=== PATIENT | female | born 1960 | race Caucasian/White ===

== ENCOUNTER 2019-04-21 18:29 | Observation (INO) | payer BC ==
--- OUTSIDE RECORDS SUMMARY | 2019-04-21 18:42 | XMS REPORT | Continuity of Care Document ---
:1960 External Reference #:[id number] Author Name Jodie Doshi M.D. 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 Onset: 07/31/2007 Pelvic congestion syndrome Felipe Rojas M.D. Onset: 04/06/2010 Benign essential hypertension Felipe Rojas M.D. Onset: 05/27/2012 Hyperlipidemia Felipe Rojas M.D. Onset: 11/20/2013 Aneurysm of thoracic aorta Felipe Rojas M.D. Onset: 06/27/2018 Essential hypertension Felipe Rojas M.D. Onset: 07/17/2016 Family History Date Family Member(s) Observation Comments Father Atrial Fibrillation Father Prostate Cancer Onset: (age 80 Years) Father Coronary Artery Disease (CAD) Mother Osteoporosis Onset: (age 80 Years) Mother Cerebrovascular Accident (CVA) Onset: (age 50 Years) First Brother Cardiomyopathy Social History Type Date Description Comments Sex Unknown Tobacco Use Start: Unknown Nonsmoker ETOH Use Some Tobacco Use Start: Unknown Patient has never smoked Exercise Type/Frequency Exercises sporadically Current Seat Belt/Car Seat Always uses a seat belt Smoke Alarms There are smoke alarms in the house Allergies, Adverse Reactions, Alerts Active Allergies Reaction Severity Comments Date Penicillin 07/31/2007 Medications Active Medications SIG Qnty Indications Ordering Provider Date Metoprolol Succinate 1/2 by mouth 45tabs I10 Felipe Rojas, 09/21/2016 ER every day in the M.D. 25mg Tablets ER 24HR evening Rosuvastatin Calcium take 1 tablet by 90tabs E78.5 Patito Stephen 07/17/2016 10mg mouth at bedtime ANGY Larkin Tablets Vitamin D 2 by mouth every Unknown (Cholecalciferol) day-chewtabs 1000Unit Tablets Multi Vitamin Daily Unknown Tablets Oxycontin 1 po bid Unknown 10mg Tab ER 12H Abuse-Det Fiber Adult Gummies 2 qd Unknown 2gm Chewtabs Vitamin B12 1 by mouth every Unknown 1000mcg day Tablets ER Myrbetriq 1 by mouth every Unknown 50mg Tablets ER in the evening 24HR Tizanidine HCL take one by Unknown 4mg mouth up to 3 Capsules times per day as needed for pain History Medications Ciprofloxacin HCL 1 tab by mouth 6tabs Trinidad Rodriguez, 12/14/2015 - 250mg Tablets twice a day x 3 Afnp-C 12/17/2015 days Vesicare 1 by mouth every 30tabs Trinidad Rodriguez, 12/14/2015 - 5mg Tablets day Afnp-C 06/18/2017 Physical Therapy treatment and 719.4 Trinidad Rodriguez, 12/02/2013 - evaluation of 1 Afnp-C 05/11/2015 left shoulder pain Zolpidem Tartrate 1 by mouth every 30tabs Felipe Newby 11/20/2013 - 10mg Tablets night at bedtime Lulu Rojas 06/27/2018 Blood Pressure Cuff monitor blood 1units 401.9 Erin Yu, 04/02/2013 - Size pressure daily PROJ MGR 05/11/2015 Medium and report results weekly Zolpidem Tartrate 1-2 po qhs prn 45tabs 780.5 Jacinto Newby 01/17/2013 - 5mg Tablets sleep 9 Lulu Fisher 11/20/2013 Amlodipine Besylate 1 by mouth every 90tabs I10 Felipe Newby 12/25/2012 - 5mg Tablets day Lulu Rojas 09/21/2016 Amlodipine Besylate 1 po qd 30tabs Felipe Newby 08/12/2012 - 2.5mg Lulu Rojas 12/25/2012 Tablets Simvastatin take 1 tablet by 90tabs E78.4 Felipe Newby 06/27/2012 - 40mg Tablets mouth once daily Lulu Rojas 07/17/2016 Lisinopril take one tablet 30tabs Felipe Newby 06/26/2012 - 2.5mg Tablets by mouth every Lulu Rojas 08/12/2012 evening Pyridium 1 po bid x 3 days 6tabs 595.1 Jacinto Newby 12/23/2011 - 200mg Tablets Lulu Fisher 05/27/2012 Oxycodone HCL 1 po q6 hrs prn [facility] 12/19/2011 - 5mg Tablets [facility] 06/19/2017 [facility] Tizanidine HCL take one by mouth [facility] 12/19/2011 - 2mg Tablets at bedtime [facility] 06/19/2017 [facility] Cipro 1 po bid x 5 d 10tabs 599.0 Jodie Pryor 12/19/2011 - 250mg Tablets Lulu Doshi 05/27/2012 Physical Therapy Interstitial 595.1 Jodie Pryor 12/19/2011 - Evaluate And Treat: cystitis. Lulu Doshi 05/27/2012 Pelvic Floor Dysfunctn Lyrica 1 -2 up to tid as 180caps 625.5 Felipe Newby 07/22/2008 - 25mg Capsules directed Lulu Rojas 08/24/[address] Chambers 07/22/2008 - 100mg Doctor 08/24/2009 Tablets ER 12HR Pyridium as Dir prn [facility] 07/14/2008 - 100mg Tablets [facility] 04/06/2010 [facility] Hydrocodone as Dir prn/ Pain [facility] 06/30/2008 - Bitartrate/Apap [facility] 10/21/2008 5-500mg Tablets [facility] Amitriptyline HCL 1 by mouth every 90tabs Trinidad Rodriguez 06/30/2008 - 25mg Tablets day [facility] 04/17/2019 Estradiol bid [facility] 06/30/2008 - 1mg Tablets [facility] 04/06/2010 [facility] Elmiron 1 PO tid [facility] 06/30/2008 - 100mg Capsules [facility] 04/06/2010 [facility] Ambien 1 po qhs prn 90tabs 780.5 Felipe A. 02/05/2008 - 10mg Tablets sleep pu 9 Lulu Rojas 01/17/2013 nt Robitussin A-C 1-2 tsp po q4h 80ml 465.9 Casey A. 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 Clarinex 1 PO qd Samples 477.9 Erin Yu, 09/26/2007 - 5mg Tablets [facility] 12/26/2007 Ambien-CR 1 qhs prn 30units 780.5 Erin Yu, 08/20/2007 - 12.5mg 9 [facility] 02/05/2008 Lunesta 1 po qhs 30tabs 780.5 Felipe Newby 07/31/2007 - 3mg Tablets 9 Lulu Rojas 08/20/2007 Tramadol as dir prn pain 50tabs Felipe Newby 04/30/2007 - 50mg Tablets Lulu Rojas 01/20/2008 Detrol LA 1 PO qd [facility] 07/31/2001 - 4mg Capsules [facility] 04/06/2010 [facility] Fentanyl apply q3days Unknown - 25mcg/HR Patches 72HR 04/02/2013 Estradiol 1/2 po qd Unknown - 2mg Tablets 05/27/2012 Opana 1 po tid prn Unknown - 5mg Tablets 12/19/2011 Diazepam bid Unknown - Suppository 03/02/2011 Gabapentin 1 po bid Unknown - 600mg Tablets 03/02/2011 Hydrochlorothiazide 1 po qd Unknown - 12.5mg 06/26/2012 Capsules Simvastatin 1 po qd 30tabs Felipe A. - 20mg Tablets Lulu Rojas 06/27/2012 Gabapentin 2 po bid 270caps Unknown - 300mg Capsules 05/11/2015 Clonidine HCL apply 1 patch to 15units Felipe A. - 0.1mg/24HR skin weekly Lulu Rojas 11/15/2016 Patches Weekly Clonidine HCL one to skin q Unknown - 0.2mg/24HR week 09/21/2016 Patches Weekly Oxybutynin Chloride ER 1 by mouth every Unknown - 10mg day 04/17/2019 Tablets ER 24HR Magnesium 1 by mouth every Unknown - Tablets day 04/17/2019 Flax Seed Oil 1 by mouth every Unknown - 1000mg Capsules day 04/17/2019 Immunizations CPT Code Status Date Vaccine Lot # [id number] Given 06/27/2018 Influenza Virus Vaccine, Recombinant Dna, [id number] [place] [id number] Given 07/05/2017 Influenza Vac, Quadriv[place], [place] [address] Given 07/17/2016 Influenza Vac, Quadrivalent, Slit Virus, Im [id number] 44798 Given 06/29/2015 Influenza Vac, [place]riv[place], [place] [address] Given 07/23/2014 DO Not Use Split Influenza Virus Vaccine 91856 Given 08/12/2012 DO Not Use Split Influenza Virus Vaccine [id number] Given 06/19/2011 DO Not Use Split Influenza Virus Vaccine [id number] 71515 Given 08/27/2009 H1N1 Virus Vaccine [id number] 77221 Given 08/27/2009 H1N1 Immunization Intramuscular/Intranasal [facility] Counsel[facility] 86352 Given 07/22/2008 DO Not Use Split Influenza Virus Vaccine [id number] Vital Signs Date Vital Result Comment 04/17/2019 7:05pm BP Systolic 140 mmHg BP Diastolic 80 mmHg Heart Rate 72 /min Body Temperature 98.1 F Respiratory Rate 12 /min Height 65.5 inches 5'5.50" Weight 163.00 lb BMI (Body Mass Index) 26.7 kg/m2 06/27/2018 3:10pm BP Systolic 134 mmHg BP Diastolic 80 mmHg Heart Rate 70 /min Body Temperature 98.1 F Respiratory Rate 16 /min Height 66 inches from previous Weight 172.00 lb BMI (Body Mass Index) 27.8 kg/m2 Head Circumference 172 inches 06/18/2017 4:03pm BP Systolic 138 mmHg BP Diastolic 80 mmHg Heart Rate 78 /min Body Temperature 98.2 F Respiratory Rate 16 /min Weight 175.12 lb 12/06/2016 1:26pm BP Systolic 149 mmHg BP Diastolic 90 mmHg Heart Rate 60 /min 10/12/2016 1:42pm BP Systolic 120 mmHg BP Diastolic 80 mmHg Heart Rate 76 /min Body Temperature 97.7 F Respiratory Rate 16 /min Height 66 inches 5'6" Weight 180.00 lb BMI (Body Mass Index) 29.0 kg/m2 09/21/2016 6:10pm BP Systolic 136 mmHg BP Diastolic 80 mmHg Heart Rate 76 /min Body Temperature 97.7 F Respiratory Rate 16 /min Height 66 inches 5'6" Weight 180.00 lb BMI (Body Mass Index) 29.0 kg/m2 07/17/2016 1:38pm BP Systolic 136 mmHg BP Diastolic 70 mmHg Heart Rate 80 /min Body Temperature 98.8 F Respiratory Rate 16 /min Height 66 inches 5'6" Weight 185.00 lb BMI (Body Mass Index) 29.9 kg/m2 12/14/2015 7:13pm BP Systolic 126 mmHg BP Diastolic 74 mmHg Heart Rate 72 /min Body Temperature 98.1 F Respiratory Rate 16 /min Height 66 inches 5'6" Weight 193.12 lb BMI (Body Mass Index) 31.2 kg/m2 05/11/2015 1:32pm BP Systolic 142 mmHg BP Diastolic 92 mmHg Heart Rate 80 /min Body Temperature 98.9 F Height 66 inches 5'6" Weight 190.00 lb BMI (Body Mass Index) 30.7 kg/m2 08/19/2014 2:02pm BP Systolic 142 mmHg BP Diastolic 88 mmHg Heart Rate 62 /min Body Temperature 98.6 F Respiratory Rate 14 /min Height 66 inches 5'6" Weight 198.12 lb BMI (Body Mass Index) 32.0 kg/m2 12/02/2013 1:16pm BP Systolic 118 mmHg BP Diastolic 80 mmHg Heart Rate 76 /min Body Temperature 98.9 F Respiratory Rate 16 /min Height 66 inches 5'6" Weight 196.00 lb BMI (Body Mass Index) 31.6 kg/m2 11/20/2013 2:55pm BP Systolic 120 mmHg BP Diastolic 70 mmHg Heart Rate 88 /min Body Temperature 97.9 F Respiratory Rate 14 /min Height 66 inches 5'6" Weight 196.00 lb BMI (Body Mass Index) 31.6 kg/m2 04/02/2013 3:41pm BP Systolic 142 mmHg BP Diastolic 80 mmHg Heart Rate 84 /min Body Temperature 98.0 F Respiratory Rate 16 /min Height 66 inches 5'6" Weight 195.00 lb BMI (Body Mass Index) 31.5 kg/m2 08/12/2012 2:08pm BP Systolic 140 mmHg BP Diastolic 80 mmHg Heart Rate 84 /min Body Temperature 98.9 F Respiratory Rate 16 /min Height 66 inches 5'6" Weight 196.00 lb BMI (Body Mass Index) 31.6 kg/m2 07/10/2012 1:48pm BP Systolic 120 mmHg BP Diastolic 88 mmHg Heart Rate 80 /min Body Temperature 98.3 F Height 66 inches 5'6" Weight 194.00 lb BMI (Body Mass Index) 31.3 kg/m2 06/26/2012 4:35pm BP Systolic 150 mmHg BP Diastolic 90 mmHg Heart Rate 96 /min Body Temperature 98.0 F Height 66 inches 5'6" Weight 195.00 lb BMI (Body Mass Index) 31.5 kg/m2 05/27/2012 1:55pm BP Systolic 142 mmHg BP Diastolic 110 mmHg Heart Rate 96 /min Body Temperature 98.0 F O2 % BldC Oximetry 98 % Height 66 inches 5'6" Weight 195.00 lb BMI (Body Mass Index) 31.5 kg/m2 12/23/2011 12:33pm BP Systolic 124 mmHg BP Diastolic 72 mmHg Heart Rate 90 /min Body Temperature 98.7 F Height 66 inches 5'6" Weight 190.00 lb BMI (Body Mass Index) 30.7 kg/m2 12/19/2011 3:46pm BP Systolic 150 mmHg BP Diastolic 64 mmHg Heart Rate 90 /min Body Temperature 99.0 F Height 66 inches 5'6" Weight 190.00 lb BMI (Body Mass Index) 30.7 kg/m2 06/23/2011 3:58pm BP Systolic 124 mmHg BP Diastolic 86 mmHg Heart Rate 78 /min Body Temperature 98.8 F Height 66 inches 5'6" Weight 185.00 lb BMI (Body Mass Index) 29.9 kg/m2 03/02/2011 2:35pm BP Systolic 110 mmHg BP Diastolic 70 mmHg Heart Rate 84 /min Body Temperature 99.0 F Height 66 inches 5'6" Weight 183.00 lb BMI (Body Mass Index) 29.5 kg/m2 04/06/2010 2:51pm BP Systolic 122 mmHg BP Diastolic 70 mmHg Heart Rate 72 /min Body Temperature 98.3 F Respiratory Rate 16 /min Height 66 inches 5'6" Weight 170.00 lb BMI (Body Mass Index) 27.4 kg/m2 08/24/2009 4:16pm BP Systolic 110 mmHg BP Diastolic 64 mmHg Heart Rate 84 /min Body Temperature 98.1 F Height 66 inches 5'6" Weight 178.00 lb BMI (Body Mass Index) 28.7 kg/m2 10/21/2008 2:52pm BP Systolic 120 mmHg BP Diastolic 78 mmHg Heart Rate 72 /min Body Temperature 98.3 F Respiratory Rate 16 /min Height 66 inches 5'6" Weight 170.00 lb BMI (Body Mass Index) 27.4 kg/m2 08/06/2008 8:16pm BP Systolic 138 mmHg BP Diastolic 80 mmHg Heart Rate 100 /min Body Temperature 98.7 F Respiratory Rate 16 /min Height 66 inches 5'6" Weight 164.00 lb BMI (Body Mass Index) 26.5 kg/m2 07/22/2008 4:47pm BP Systolic 118 mmHg BP Diastolic 86 mmHg Heart Rate 92 /min Body Temperature 98.9 F Height 66 inches 5'6" Weight 160.00 lb BMI (Body Mass Index) 25.8 kg/m2 12/26/2007 11:30am BP Systolic 120 mmHg BP Diastolic 80 mmHg Heart Rate 68 /min Body Temperature 98.2 F Height 66 inches 5'6" 11/25/2007 10:21am BP Systolic 112 mmHg BP Diastolic 74 mmHg Heart Rate 60 /min Respiratory Rate 16 /min Height 66 inches 5'6" Weight 158.00 lb BMI (Body Mass Index) 25.5 kg/m2 10/24/2007 10:31am BP Systolic 110 mmHg BP Diastolic 58 mmHg Heart Rate 64 /min Body Temperature 98.2 F Height 66 inches 5'6" Weight 158.00 lb BMI (Body Mass Index) 25.5 kg/m2 10/17/2007 11:28am BP Systolic 118 mmHg BP Diastolic 68 mmHg Heart Rate 76 /min Body Temperature 99.3 F Height 66 inches 5'6" 10/09/2007 2:19pm BP Systolic 114 mmHg BP Diastolic 70 mmHg Heart Rate 78 /min Body Temperature 99.2 F Height 66 inches 5'6" 09/26/2007 2:06pm BP Systolic 116 mmHg BP Diastolic 62 mmHg Heart Rate 74 /min Body Temperature 98.6 F Respiratory Rate 15 /min Height 66 inches 5'6" 09/09/2007 12:54pm BP Systolic 110 mmHg BP Diastolic 70 mmHg Heart Rate 76 /min Body Temperature 98.0 F O2 % BldC Oximetry 98 % Height 66 inches 5'6" Weight 160.00 lb BMI (Body Mass Index) 25.8 kg/m2 07/31/2007 2:41pm BP Systolic 110 mmHg BP Diastolic 70 mmHg Heart Rate 72 /min Body Temperature 98.1 F Height 66 inches 5'6" Weight 167.00 lb BMI (Body Mass Index) 27.0 kg/m2 Results Test Date Facility Test Result H/L Range Note Laboratory test [facility] [place] [place] Surgical SEE RESULT BELOW 1 finding 8 Pathology Hepatitis Acute [facility] [place] [place] Hepatitis B Nonreactive Nonreactive 2 Panel 8 Surface Antigen Hepatitis B Core IgM Nonreactive Nonreactive Hepatitis A AB IgM Nonreactive Nonreactive Hepatitis C Antibody Nonreactive Nonreactive Comprehensive Metabolic 06/27/2018 Shukla Latoya([facility]ma) Sodium 141 mEq/L 134-149 Prof Potassium 4.2 mEq/L 3.6-5.5 Chloride 104 mEq/L 94-112 Carbon Dioxide 29 mEq/L 21-32 Glucose 116 mg/dL High 70-105 BUN 10 mg/dL 6-26 Creatinine 0.7 mg/dL 0.6-1.4 BUN/Creat Ratio 14.3 CALC 8.0-36.0 Calcium 10.0 mg/dL 8.6-10.2 Total Protein 7.3 g/dL 6.4-8.3 Albumin 5.1 g/dL 3.8-5.5 Globulin 2.2 g/dL 2.0-4.8 A/G Ratio 2.3 CALC 0.6-2.3 Alk. Phosphatase 85 U/L 30-110 Alt (SGPT) 89 U/L High 7-35 Ast (Sgot) 68 U/L High 5-34 Total Bilirubin 0.6 mg/dL 0.2-1.3 GFR Non- >60 ml/min/1.73m^ >=60 GFR >60 ml/min/1.73m^ >=60 Lipid Profile 06/27/2018 Shukla Latoya([facility]) Cholesterol 231 mg/dL High 120-200 Triglycerides 206 mg/dL High 30-200 HDL Cholesterol 104 mg/dL High 30-85 LDL (Calculated) 86 CALC 0-129 VLDL Cholesterol 41 mg/dL 0-50 HDL Risk Factor 2.2 CALC 0.0-4.4 CBC Electronic (Fma New) 06/27/2018 Family Medicine WBC 5.50 4.0-10.0 (607)- - RBC 4.73 3.93-6.0 Hemoglobin (Fma/CMC/CTX) 14.6 g/dL 12.0-17.0 Hematocrit (Fma/CMC/CTX) 43.1 % 35.0-50.0 Mean Corpuscular Vol 91.1 fL 80-95 Mean Corpuscular Hemoglobin 30.9 pg 25.6-32.2 Mean Corpuscular Hemo Concen 33.9 g/dL 32.2-36.0 Platelets 196 10^3/ul 163-400 RDW-CV 12.3 11.6-14.4 Mean Platelet Volume 10.0 fL 8.0-12.4 Absolute Neutrophils BLD 2.90 1.56-6.13 Absolute Lymphocytes 2.11 1.18-3.74 Absolute Monocytes BLD Auto 0.33 0.24-0.82 Absolute Eos Blood 0.10 0.04-0.54 Absolute Basophils 0.06 0.01-0.08 Neutrophil % 52.7 % 34.0-70.0 Lymph% 38.4 % 20.0-52.0 Monocytes % 6.0 % 5.0-12.0 Eos % 1.8 % 0.7-7.0 Basophil% 1.1 % 0-1.2 Lipid Profile 06/27/2016 Shukla Latoya([facility]) Cholesterol 331 mg/dL High 120-200 Triglycerides 197 mg/dL 30-200 HDL Cholesterol 68 mg/dL 30-85 LDL (Calculated) 224 CALC High 0-129 VLDL Cholesterol 39 mg/dL 0-50 HDL Risk Factor 4.9 CALC High 0.0-4.4 Hepatic 06/27/2016 Shukla Latoya([facility]) Total Protein 7.3 g/dL 6.4-8.3 Albumin 4.5 g/dL 3.8-5.5 Globulin 2.8 g/dL 2.0-4.8 A/G Ratio 1.6 CALC 0.6-2.3 Alk. Phosphatase 81 U/L 30-110 Alt (SGPT) 26 U/L 7-35 Ast (Sgot) 28 U/L 5-34 Total Bilirubin 0.5 mg/dL 0.2-1.3 Direct Bilirubn 0.2 mg/dL 0.0-0.6 Indirect Bilirubin 0.30 mg/dL 0.10-1.00 Ua - Micro ([facility]) 12/14/2015 Family Medicine Appearance CLEAR (607)- - Color YELLOW Glucose, Urine (Fma/CMC/CTX) NEG Bilirubin NEG Ketones NEG SP Grav 1.025 Blood TRACE-LYSED # PH 6.5 Protein NEG Urobil 0.2 Nitrite NEG Leukocytes ([facility]ma/CMC/[facility]) NEG Hyaline - /Lpf Granular - /Lpf WBC (Fma,[facility]) - RBC 0-1 # Mucus - /Lpf Epith - /Lpf Bacteria RARE /Hpf # Amorphous - /Lpf Crystals, Fluid (Fma/CMC/CTX) - Z#Comments - Comp Metabolic-ALL [facility] 09/02/2014 [facility] Sodium 138 mmol/L N 133- 145 Potassium 3.9 mmol/L N 3.5-5.0 Chloride 105 mmol/L N 101-111 Co2 Carbon Dioxide 25 mmol/L N 22-32 Anion Gap 8 mmol/L N 2-11 Glucose 92 mg/dL N 70-100 Blood Urea Nitrogen 7 mg/dL N 6-24 Creatinine 0.70 mg/dL N 0.51-0.95 BUN/Creatinine Ratio 10.0 N 8-20 Calcium 9.9 mg/dL N 8.6-10.3 Total Protein 7.2 g/dL N 6.4-8.9 Albumin 4.6 g/dL N 3.2-5.2 Globulin 2.6 g/dL N 2-4 Albumin/Globulin Ratio 1.8 N 1-3 Total Bilirubin 0.60 mg/dL N 0.2-1.0 Alkaline Phosphatase 78 U/L N 34-104 Alt 16 U/L N 7-52 Ast 21 U/L N 13-39 Egfr Non- 87.5 N >60 Egfr 112.6 N >60 3 Laboratory test finding 09/02/2014 [facility] [place] [place] Erythrocyte Sed Rate 14 mm/Hr N 0- 30 Lipid Panel-[facility] 09/02/2014 [facility] [place] [place] Triglycerides 98 mg/dL N 4 Cholesterol 176 mg/dL N 5 HDL Cholesterol 63.3 mg/dL N 6 LDL Cholesterol 93 mg/dL N 7 Vitamin D, 25-Hydroxy (CTX,[facility] [place] [place] 09/02/2014 [facility] [place] [place] 25-Hydroxy Vitamin D2 <4.0 ng /mL N 25-Hydroxy Vitamin D3 44 ng/mL N 25-Hydroxy Vitamin D Total 44 ng/mL N 8 Laboratory test finding 09/02/2014 [facility] [place] [place] C Reactive Protein 3.66 mg/L N < 5.00 9 CBC Auto Diff 09/02/2014 [facility] [place] [place] White Blood Count 5.7 10^3/uL N 4.8-10.8 Red Blood Count 4.68 10^6/uL N 4.0-5.4 Hemoglobin 14.0 g/dL N 12.0-16.0 Hematocrit 42 % N 35-47 Mean Corpuscular Volume 89 fL N 80-97 Mean Corpuscular Hemoglobin 30 pg N 27-31 Mean Corpuscular HGB Conc 34 g/dL N 31-36 Red Cell Distribution Width 14 % N 10.5-15 Platelet Count 207 10^3/uL N 150-450 Mean Platelet Volume 9 um3 N 7.4-10.4 Abs Neutrophils 3.7 10^3/uL N 1.5-7.7 Abs Lymphocytes 1.5 10^3/uL N 1.0-4.8 Abs Monocytes 0.4 10^3/uL N 0-0.8 Abs Eosinophils 0.1 10^3/uL N 0-0.6 Abs Basophils 0 10^3/uL N 0-0.2 Abs Nucleated RBC 0 10^3/uL N Granulocyte % 65.1 % N 38-83 Lymphocyte % 26.5 % N 25-47 Monocyte % 6.4 % N 1-9 Eosinophil % 1.3 % N 0-6 Basophil % 0.7 % N 0-2 Nucleated Red Blood Cells % 0.1 N Pthi 01/20/2014 [facility] PTH Intact 7.8 pmol/L 1.3-9.3 Calcium (PTH Intact) 10.0 mg/dL 8.6-10.3 Lipid Profile 01/20/2014 Shukla Latoya([facility]) Cholesterol 209 mg/dL High 120-200 Triglycerides 116 mg/dL 30-200 HDL Cholesterol 81 mg/dL 30-85 LDL (Calculated) 105 CALC 0-129 VLDL Cholesterol 23 mg/dL 0-50 HDL Risk Factor 2.6 CALC 0.0-4.4 Laboratory test finding 01/20/2014 Vazquez Latoya(a) TSH 1.86 mIU/L 0.50-6.00 Comprehensive Metabolic 11/12/2013 Vazquez Latoya(a) Sodium 144 mEq/L 134-149 Prof Potassium 4.2 mEq/L 3.6-5.5 Chloride 104 mEq/L 94-112 Carbon Dioxide 22 mEq/L 21-32 Glucose 112 mg/dL High 70-105 10 BUN 12 mg/dL 6-26 Creatinine 0.7 mg/dL 0.6-1.4 BUN/Creat Ratio 17.1 CALC 8.0-36.0 Calcium 10.1 mg/dL 8.6-10.2 Total Protein 7.3 g/dL 6.3-8.1 Albumin 5.1 g/dL 3.8-5.5 Globulin 2.2 g/dL 2.0-4.8 A/G Ratio 2.3 CALC 0.6-2.3 11 Alk. Phosphatase 98 U/L 30-110 Alt (SGPT) 22 U/L 7-35 Ast (Sgot) 28 U/L 5-34 Total Bilirubin 0.4 mg/dL 0.2-1.3 Lipid Profile 11/12/2013 Shukla Latoya(a) Cholesterol 245 mg/dL High 120-200 Triglycerides 118 mg/dL 30-200 HDL Cholesterol 73 mg/dL 30-85 LDL (Calculated) 148 CALC High 0-129 VLDL Cholesterol 24 mg/dL 0-50 HDL Risk Factor 3.4 CALC 0.0-4.4 Laboratory test 11/12/2013 Vazquez Klein([facility]) Vitamin D25 28 Low 30-100 12 finding Lipid Profile 08/12/2012 Vazquez Klein([facility]) Cholesterol 289 mg/dL High 120-200 HDL 70 mg/dL 30-85 Triglycerides 341 mg/dL High 30-200 HDL Risk Factor 4.1 CALC 0.0-4.4 LDL (Calculated) 150 CALC High 0-129 13 VLDL (Calculated) 68 mg/dL High 0-50 Comprehensive Metabolic 08/12/2012 Vazquez Klein([facility]) Albumin 5.0 g/dL 3.8-5.5 Prof Alk. Phos. 77 U/L 30-110 Alt (SGPT) 30 U/L 7-35 Ast (Sgot) 28 U/L 5-34 BUN 12 mg/dL 6-26 Calcium 9.5 mg/dL 8.6-10.2 Chloride 102 mEq/L 94-112 Creatinine 0.8 mg/dL 0.6-1.4 Carbon Dioxide 22 mEq/L 21-32 Glucose 117 mg/dL High 70-105 14 Sodium 136 mEq/L 134-149 Total Bilirubin 0.5 mg/dL 0.2-1.3 Total Protein 7.6 g/dL 6.3-8.1 Potassium 3.8 mEq/L 3.6-5.5 Globulin 2.6 g/dL 2.0-4.8 A/G Ratio 1.9 Calc 0.6-2.2 BUN/Creat Ratio 15.0 Calc 8.0-36.0 Laboratory test 08/12/2012 Vazquez Klein([facility]) LDL (Direct) 138 mg/dL High 0-130 finding Urinalysis 05/06/2012 [facility] Ua Color YELLOW Yellow Appearance-Urine CLEAR Clear Specific Willard-Ur 1.011 1.010-1.030 Esterase-Urine NEGATIVE Negative Nitrite NEGATIVE Negative [id number] NEGATIVE Negative Protein-Urine NEGATIVE Negative PH-Urine 6.5 5-9 Blood-Urine NEGATIVE Negative Ketones-Urine TRACE Abnormal Negative Bilirubin-Ur NEGATIVE Negative Glucose-Urine NEGATIVE Negative Protime 05/06/2012 [facility] Inr 0.95 0.88-1.13 15 Protime 11.3 SEC 10.3-13.5 16 Laboratory test finding 05/06/2012 [facility] [place] [place] PTT (Aptt) 30.0 SEC 25.1-38.5 CBC Auto Diff 05/06/2012 [facility] [place] [place] White Blood Count 7.9 CUMM 4.8-10.8 Red Cell Count 4.79 CUMM 4.2-5.4 Hemoglobin 14.5 g/dL 12.0-16.0 Hematocrit 43 % 35-47 Mean Corpuscular Volume 89 um3 79-97 Mean Corpuscular Hemoglob 30 pg 27-31 Mean Corpuscular HGB Cone 34 g/dL 32-36 Redcell Distribution WDTH 13 % 10.5-15 Platelet Count 217 CUMM 150-450 Mean Platelet Volume 8.4 um3 7.4-10.4 Gran % 71.4 % 38-83 Lymph % 20.9 % 20-45 Mononuclear % 5.7 % 1-9 Eosinophil % 1.4 % 0-6 Basophil % 0.6 % 0-2 Abs Lymphs 1.6 1.0-4.8 Abs Mononuclear 0.5 0-0.8 Absolute Neutrophil Count 5.6 1.5-7.7 Abs Eosinophils 0.1 0-0.6 Abs Basophils 0 0-0.2 Comp Metabolic Panel 05/06/2012 [facility] [place] [place] Sodium 135 mmol/L 135-145 Potassium 4.4 mmol/L 3.5-5.0 Chloride 104 mmol/L 101-111 Co2 (Carbon Dioxide) 21.0 mmol/L Low 22-32 Anion Gap 10.0 mmol/L 2-11 17 Glucose 99 mg/dL 70-100 BUN 8 mg/dL 6-24 Creatinine 0.7 mg/dL 0.50-1.40 One Over Creatinine 1.42 BUN/Creatinine Ratio 11.4 8-20 Calcium 10.0 mg/dL High 8.1-9.9 Total Protein 6.9 GM/DL 6.2-8.1 Albumin 4.6 GM/DL 3.6-5.4 Globulin 2.3 GM/DL 2-4 Albumin/Globulin Ratio 2.0 1-3 Bilirubin Total 1.0 mg/dL 0.4-1.5 18 Alkaline Phosphatase 68 U/L 30-110 Alt (SGPT) 27 U/L 14-54 Ast (Sgot) 39 U/L 12-42 eGFR Non- 88.2 > 60 eGFR 113.5 > 60 19 Laboratory test finding 05/06/2012 [facility] [place], [place] CPK (Creatine Kinase) 283 U/L High 0-170 Troponin-I 0 NG/ML 0-0.06 20 Laboratory test 12/19/2011 [facility] Urine Culture No growth. finding [address] [place] [address] [phone] Ua - Micro (Fma) 12/19/2011 [facility] Medicine Appearance clear (607)- - Color yellow Glucose, Urine (Fma/CMC/CTX) neg Bilirubin neg Ketones neg SP Grav 1.010 Blood trace-lysed # PH 6.0 Protein neg Urobil 0.2 Nitrite neg Leukocytes (Fma/CMC/[facility]) neg Hyaline - /Lpf Granular - /Lpf WBC (Fma,[facility]) 1-2 # RBC 5-6 # Mucus (Fma/CBC/[facility]) - /Lpf Epith rare /Lpf # Bacteria rare /Hpf # Amorphous (Fma/CMC/[facility]) - /Lpf Crystals, Fluid (Fma/CMC/CTX) - Z#Comments - Shiga Toxin 1 And 2 (Ehec) 03/05/2011 [facility] [place] [place] E.Coli 0157:H7 Culture NF 21 E.Coli 0157:H7 03/05/2011 [facility] [place] [place] O P: Giardia/Crypto Screen NF 22 E.Coli 0157:H7 Culture NF 23 Stool Cult Sensitivity NF 24 Culture Stool 03/05/2011 [facility] [place] [place] Stool Cult Sensitivity NF 25 Campylobacter Culture NF 26 O P: Giardia/Crypto Screen NEGATIVE BY IMMU <SEE NOTE> 27 Stool Specimen Description TNP 28 Laboratory test 03/05/2011 [facility] [place] [place] O P: Giardia/Crypto Giardia and cryp 29 finding Screen <SEE NOTE> Shiga Toxin 1 And 2 (Ehec) NEGATIVE BY IMMU <SEE NOTE> 30 CBC Electronic (a) 03/03/2011 [facility] WBC 6.0 3.6-9.6 (607)- - RBC 4.49 3.90-5.70 Hemoglobin (Fma/CMC/CTX) 13.9 g/dL 12.1 - 17.2 Hematocrit (Fma/CMC/CTX) 40.7 % 36.1 - 50.3 Platelets 253 10^3/ul 150-400 Lymph% 31.1 20.5-51.1 Mixed% 9.0 Neutrophils % 59.9 Mean Corpuscular Vol 90.6 82.2-97.4 Mean Corpuscular Hemoglobin 31.0 27.6-33.3 Mean Corpuscular Hemo Concen 34.2 32.0-36.0 RDW 12.3 11.6-13.7 Mean Platelet Volume 10.4 6.5-11.0 Comprehensive Metabolic 03/03/2011 Shukla Latoya(fma) Albumin 4.5 g/dL 3.8-5.5 Prof Alk. Phos. 49 U/L 30-110 Alt (SGPT) 12 U/L 7-35 Ast (Sgot) 17 U/L 5-34 BUN 11 mg/dL 6-26 Calcium 9.7 mg/dL 8.6-10.2 Chloride 98 mEq/L 94-112 Creatinine 0.8 mg/dL 0.6-1.4 Carbon Dioxide 24 mEq/L 21-32 Glucose 92 mg/dL 70-105 Sodium 137 mEq/L 134-149 Total Bilirubin 0.4 mg/dL 0.2-1.3 Total Protein 6.7 g/dL 6.3-8.1 Potassium 3.8 mEq/L 3.6-5.5 Globulin 2.2 g/dL 2.0-4.8 A/G Ratio 2.0 Calc 0.6-2.2 BUN/Creat Ratio 13.7 Calc 8.0-36.0 Ebv Acute 03/03/2011 [facility] Ebv Ab Vca, 0.4 AI 0.0-0.8 [address] [place] [place] [address] [phone] Ebv Early Antigen Ab, IgG 0.2 AI 0.0-0.8 32 Ebv Ab Vca, IgG >8.0 AI High 0.0-0.8 33 Ebv Nuclear Antigen Ab, IgG >8.0 AI High 0.0-0.8 34 Interpretation: SEE NOTE 35 CMV Abs 03/03/2011 [facility] CMV Ab, IgG 8.4 High 0.0-0.8 36 Igg/Igm [address] (Cytomegalovirus) [place] [address] [phone] CMV Ab, IgM Cytomegalovirus <0.9 index 0.0-0.8 37 Laboratory test 03/03/2011 [facility] Vitamin D, 13.6 ng/mL Low 32.0-100.0 [address] [place] [address] [phone] Laboratory test 03/02/2011 [facility] Throat - neg@48hrs finding (359)- - Beta Strep Fma Quickstrep neg Negative Comp Stat 12/09/2008 [facility] [place] [place] Sodium 139 mmol/L 135-145 Potassium 3.7 mmol/L 3.5-5.0 Chloride 106 mmol/L 101-111 Co2 (Carbon Dioxide) 24.0 mmol/L 22-32 Anion Gap 9.0 mmol/L 2-11 39 Glucose 97 mg/dL 70-100 40 BUN 6 mg/dL 6-24 Creatinine 0.60 mg/dL 0.50-1.40 One Over Creatinine 1.60 BUN/Creatinine Ratio 10.0 8-20 Calcium 9.6 mg/dL 8.1-9.9 41 Total Protein 6.6 GM/DL 6.2-8.1 Albumin 4.2 GM/DL 3.6-5.4 Globulin 2.4 GM/DL 2-4 Albumin/Globulin Ratio 1.8 1-3 Bilirubin Total 0.8 mg/dL 0.4-1.5 Alkaline Phosphatase 45 U/L 30-110 Alt (SGPT) 19 U/L 14-54 Ast (Sgot) 24 U/L 12-42 Laboratory test finding 12/09/2008 [facility] [place] [place] Amylase Stat 91 U/L 30-125 Lipase 30 U/L 22-51 Urinalysis Stat 12/09/2008 [facility] [place] [place] Ua Color YELLOW Appearance-Urine CLEAR Specific Willard-Ur 1.009 Low 1.010-1.030 Esterase-Urine NEGATIVE Negative Nitrite NEGATIVE Negative Zoxufjwrzugf-Pa-LAX NEGATIVE Negative Protein-Urine NEGATIVE Negative PH-Urine 6.5 5-9 Blood-Urine NEGATIVE Negative Ketones-Urine 2+ Abnormal Negative Bilirubin-Ur NEGATIVE Negative Glucose-Urine NEGATIVE Negative CBC With Electronic Diff Stat 12/09/2008 [facility] [place] [place] White Blood Count 8.6 CUMM 4.8-10.8 Red Cell Count 4.46 CUMM 4.2-5.4 Hemoglobin 14.2 g/dL 12.0-16.0 Hematocrit 41 % 35-47 Mean Corpuscular Volume 92 um3 79-97 Mean Corpuscular Hemoglob 32 pg High 27-31 Mean Corpuscular HGB Cone 35 g/dL 32-36 Redcell Distribution WDTH 12 % 10.5-15 Platelet Count 223 CUMM 150-450 Mean Platelet Volume 7.9 um3 7.4-10.4 Gran % 81.1 % 38-83 Lymph % 13.9 % Low 25-47 Mononuclear % 4.1 % 1-9 Eosinophil % 0.6 % 0-6 Basophil % 0.3 % 0-2 Abs Lymphs 1.2 1.0-4.8 Abs Mononuclear 0.4 0-0.8 Absolute Neutrophil Count 7.0 1.5-7.7 Abs Eosinophils 0.1 0-0.6 Abs Basophils 0 0-0.2 42 Laboratory test finding 11/11/2008 [facility] [place] [place] FSH 71.46 MIU/ML 43, 44 Estradiol < 20 pg/mL 45 Laboratory test 10/09/2008 [facility] Labs OCA (CA125) See Image finding Report Laboratory test 07/29/2008 [facility] URINE CULTURE See Image finding Report Laboratory test 07/16/2008 [facility] CHLAMYDIA See Image finding PLASMID Report Laboratory test 12/26/2007 [facility] Quickstrep NEGATIVE Negative finding (607)- - Throat - Beta Strep Fma NEGATIVE @ 48 HRS Comp Stat 12/17/2007 [facility] [place] [place] One Over Creatinine 1.42 Anion Gap 7.0 mmol/L 2-11 46 Albumin/Globulin Ratio 1.6 1-3 Albumin 4.1 GM/DL 3.6-5.4 Alkaline Phosphatase 46 U/L 30-110 Alt (SGPT) 15 U/L 14-54 Ast (Sgot) 18 U/L 12-42 BUN 6 mg/dL 6-24 Calcium 9.2 mg/dL 8.7-10.2 Chloride 106 mmol/L 101-111 Co2 (Carbon Dioxide) 26.0 mmol/L 22-32 Globulin 2.6 GM/DL 2-4 Glucose 106 mg/dL High 70-105 Potassium 3.2 mmol/L Low 3.5-5.0 Sodium 139 mmol/L 135-145 Bilirubin Total 0.7 mg/dL 0.4-1.5 Total Protein 6.7 GM/DL 6.2-8.1 BUN/Creatinine Ratio 8.6 8-20 Creatinine 0.7 mg/dL 0.5-1.4 Urinalysis W/Microscopic Stat 12/17/2007 [facility] [place] [place] Ua Color YELLOW Appearance-Urine CLEAR Bacteria-Urine 1+ Bilirubin-Ur NEGATIVE Negative Blood-Urine 1+ Abnormal Negative Epith Cells-Ur MANY Esterase-Urine NEGATIVE Negative Glucose-Urine NEGATIVE Negative Ketones-Urine NEGATIVE Negative Mucus Urine LARGE Nitrite NEGATIVE Negative PH-Urine 8.0 5-9 Protein-Urine NEGATIVE Negative RBC-Urine 0-2 0-2 Wgqgliyyomgp-Zj-NXL NEGATIVE Negative Specific Willard-Ur 1.010 1.010-1.030 WBC-Urine 0-1 0-5 CBC With Manual Diff Stat 12/17/2007 [facility] [place] [place] RBC Morphology NORMAL White Blood Count 9.4 CUMM 4.8-10.8 Absolute Neutrophil Count 8.3 Band Neutrophil 7 % 0-8 Hematocrit 37 % 35-47 Hemoglobin 13.1 g/dL 12.0-16.0 Lymphocyte 7 % 5-47 Mean Corpuscular HGB Cone 35 g/dL 32-36 Mean Corpuscular Hemoglob 31 pg 27-31 Mean Corpuscular Volume 89 um3 79-97 Monocyte 4 % 0-13 Mean Platelet Volume 8.8 um3 7.4-10.4 Platelet Count 192 CUMM 150-450 Polysegmented Neutrophil 82 % 38-83 Red Cell Count 4.19 CUMM Low 4.2-5.4 Redcell Distribution WDTH 13 % 10.5-15 Laboratory test finding 12/17/2007 [facility] [place] [place] Rapid Influenza A B (SEE NOTE) 47 Antigen Blood Culture NG5 48 Laboratory test 10/17/2007 Shukla Latoya(fma) Creatine Kinase 71 U/L 26 -140 finding Laboratory test 10/17/2007 [facility] Medicine Sed Rate 7 MM finding (607)- - (Fma/[facility] [place] [place]/[facility]) Anti Viral AB 10/17/2007 [facility] HIV 1/O/2 <1.00 <1.00 [address] [place] [address] [phone] HIV 1/O/2 Abs, Qual Non Reactive 50 Ebv Acute 10/09/2007 [facility] Ebna-1(Nuclear 5.92 AB Negative 51 Infection Abs [address] Ag),[place] [address] [phone] Ebv AB Vca, Igg 4.42 INDEX AB Negative 52 Ebv AB Vca, Igm 0.03 INDEX Negative 53 Ebv Ea-D(Early Ag),Igg 0.71 INDEX Negative 54 . Ebv Interpretation SEE COMMENT 55 CMV Igg/Igm 10/09/2007 [facility] CMV Ab, IgG 10.3 High 0.0-0.[address] (Cytomegalovirus) index [place], [place] [id number] [phone] CMV Ab, IgM Cytomegalovirus <0.9 index 0.0-0.8 57 Laboratory test 10/09/2007 [facility] Antinuclear AB NEGATIVE Negative finding [address] (Darya) [place], [place] [id number] [phone] Laboratory test 10/09/2007 Shukla Latoya(fma) Free T4 1.12 ng/dL 0.75- 1.54 finding TSH 1.01 mIU/L 0.50-6.00 Comprehensive Metabolic 10/09/2007 Shukla Latoya(fma) Albumin 5.0 g/dL 3.8-5.5 Prof Alk. Phos. 70 U/L 30-110 Alt (SGPT) 18 U/L 7-35 Ast (Sgot) 20 U/L 5-34 BUN 13 mg/dL 6-26 Calcium 10.5 mg/dL High 8.6-10.2 58 Chloride 104 mEq/L 94-112 Creatinine 0.9 mg/dL 0.6-1.4 Carbon Dioxide 23 mEq/L 21-32 Glucose 109 mg/dL High 70-105 Sodium 141 mEq/L 134-149 Total Bilirubin 0.2 mg/dL 0.2-1.3 Total Protein 7.7 g/dL 6.3-8.1 Potassium 4.4 mEq/L 3.6-5.5 Globulin 2.7 g/dL 2.0-4.8 A/G Ratio 1.8 Calc 0.6-2.2 BUN/Creat Ratio 14.7 Calc 8.0-36.0 Complete Blood Count 10/09/2007 Shukla Latoya(fma) WBC 6.0 x10\\S\\3/uL 3.6-9.6 Gran# 4.7 x10\\S\\3/uL 1.5-7.2 Gran% 78.1 % High 42.2-75.2 HCT 44 % 36-50 HGB 15.1 g/dL 12.1-17.2 Lymph# 1.2 x10\\S\\3/uL 0.7-4.9 Lymph% 19.9 % Low 20.5-51.1 MCH 31.9 pg 27.6-33.3 MCV 93.8 fL 82.2-97.4 MCHC 34.0 g/dL 33.0-35.5 Mo# 0.1 x10\\S\\3/uL 0.1-0.9 Mo% 2.0 % 1.7-9.3 MPV 7.9 fL 7.4-10.4 PLT 264 x10\\S\\3/uL 150-400 RBC 4.72 x10\\S\\6/uL 3.90-5.70 RDW 11.8 % 11.6-13.7 Comprehensive Metabolic 09/09/2007 [facility] Latoya([facility]) Albumin 4.4 g/dL 3.8-5.5 59 Prof Alk. Phos. 70 U/L 30-110 Alt (SGPT) 15 U/L 7-35 Ast (Sgot) 16 U/L 5-34 BUN 7 mg/dL 6-26 Calcium 9.9 mg/dL 8.6-10.2 Chloride 100 mEq/L 94-112 Creatinine 0.8 mg/dL 0.6-1.4 Carbon Dioxide 24 mEq/L 21-32 Glucose 99 mg/dL 70-105 Sodium 140 mEq/L 134-149 Total Bilirubin 0.5 mg/dL 0.2-1.3 Total Protein 7.2 g/dL 6.3-8.1 Potassium invalid mEq/L Low 3.6-5.5 60 Globulin 2.8 g/dL 2.0-4.8 A/G Ratio 1.6 Calc 0.6-2.2 BUN/Creat Ratio 9.3 Calc 8.0-36.0 Complete Blood Count 09/09/2007 Shukla Latoya(a) WBC 5.1 x10\\S\\3/uL 3.6-9.6 Gran# 3.3 x10\\S\\3/uL 1.5-7.2 Gran% 65.5 % 42.2-75.2 HCT 43 % 36-50 HGB 14.6 g/dL 12.1-17.2 Lymph# 1.5 x10\\S\\3/uL 0.7-4.9 Lymph% 29.6 % 20.5-51.1 MCH 31.7 pg 27.6-33.3 MCV 93.6 fL 82.2-97.4 MCHC 33.8 g/dL 33.0-35.5 Mo# 0.2 x10\\S\\3/uL 0.1-0.9 Mo% 4.9 % 1.7-9.3 MPV 6.9 fL Low 7.4-10.4 PLT 272 x10\\S\\3/uL 150-400 RBC 4.62 x10\\S\\6/uL 3.90-5.70 RDW 11.4 % Low 11.6-13.7 Laboratory test finding 09/09/2007 [facility] Flu A&B NEGATIVE Negative (607)- - Monospot (Fma/[facility]) NEGATIVE 1 SEE RESULT BELOW Name: KIM CHILEL : [address]: Mahesh Villavicencio MD Acct: [id number] Unit: [id number] AGE: 57 Location: ENDO Re08/20/18 SEX: F Status: DEP REF SPEC: [id number] GARRICK: 08/20/18-9 [facility] [address]: Mahesh Villavicencio MD REQ: [id number] RECD: 08/20/18 STATUS: CARLOS MOREL DR: Felipe Rojas MD _ ORDERED: LEVEL 4 FINAL DIAGNOSIS Colon, rectum, biopsy: -- Hyperplastic polyp. CLINICAL HISTORY Constipation; on fiber gummies POST-OPERATIVE DIAGNOSIS Colonoscopy: to cecum with effort; question adult scope in future; conclusions: redundant colon; rectal polyp cold snare and biopsy GROSS DESCRIPTION The specimen is received in formalin labeled, Rectal Polyp, and consists of a 0.3 x 0.3 x 0.2 cm bolden-jean irregular soft tissue fragment which is submitted entirely in one cassette. Signed by and Reported on: Raven Rodriguez MD 08/22/18 1220 END OF REPORT DEPARTMENT OF PATHOLOGY, [address] [place] [address] Davy Flores M.D. Director [facility] # [id number] 2 serum 3 Because ethnic data is not always readily available, this report includes an eGFR for both -Americans and non- Americans. The National Kidney Disease Education Program (NKDEP) does not endorse the use of the MDRD equation for patients that are not between the ages of 18 and 70, are , have extremes of body size, muscle mass, or nutritional status, or are non- or non-. According to the National Kidney Foundation, irrespective of diagnosis, the stage of the disease is based on the level of kidney function: Stage Description GFR(mL/min/1.73 m(2)) 1 Kidney damage with normal or decreased GFR 90 2 Kidney damage with mild decrease in GFR 60-89 3 Moderate decrease in GFR 30-59 4 Severe decrease in GFR 15-29 5 Kidney failure <15 (or dialysis) 4 Desirable <150 Borderline high 150-199 High 200-499 Very High >500 5 Desirable <200 Borderline high 200-239 High >239 6 Low <40 Desirable: 40-60 High: >60 7 Desirable <100 Near Optimal 100-129 Borderline high 130-159 High 160-189 Very High >189 8 REFERENCE VALUE 25-HYDROXY D TOTAL (D2+D3) Optimum levels in the healthy population are 20-50, patients with bone disease may benefit from higher levels within this range. Test Performed by: [address] [address] [employer]: Elías Quinn M.D. 9 Acute inflammation: >10.00 10 RESULTS VERIFIED BY REPEAT ANALYSIS 11 RESULTS VERIFIED BY REPEAT ANALYSIS 12 FASTING 13 invalid 14 result nikkie'd 15 Recommended INR for Patients on Oral Anticoagulants Prophylaxis 2.0 - 3.0 Treatment of thrombosis 2.0 - 3.0 Prevention of embolism 2.0 - 3.0 Prevention of embolism from prosthetic heart valves 2.5 - 3.5 16 DIAGNOSIS,TREATMENT,AND THERAPY MUST BE BASED ON THE INR VALUE ALONE. 17 Anion gap measurement may be of limited value in the presence of any alkalosis, especially in a combined acid base disorder. . 18 A metabolite of Naproxen, O-desmethylnaproxen, has been shown to interfere with the Jendrassik-Ori method for measuring total bilirubin. Samples from patients who have taken Naproxen have shown spurious elevation in total bilirubin levels. 19 Because ethnic data is not always readily available, this report includes an eGFR for both -Americans and non- Americans. The National Kidney Disease Education Program (NKDEP) does not endorse the use of the MDRD equation for patients that are not between the ages of 18 and 70, are , have extremes of body size, muscle mass, or nutritional status, or are non- or non-. According to the National Kidney Foundation, irrespective of diagnosis, the stage of the disease is based on the level of kidney function: Stage Description GFR(mL/min/1.73 m(2)) 1 Kidney damage with normal or decreased GFR 90 2 Kidney damage with mild decrease in GFR 60-89 3 Moderate decrease in GFR 30-59 4 Severe decrease in GFR 15-29 5 Kidney failure <15 (or dialysis) 20 New Reference Range and Interpretation effective 06/20/2002 TnI (ng/ml) INTERPRETATION Less Than 0.06 ng/mL NOT SUPPORTIVE OF DIAGNOSIS OF MA 0.06 - 0.50 ng/ml INDETERMINATE: SUGGEST SERIAL STUDIES IF CLINICALLY INDICATED. Greater than 0.5 ng/mL CONSISTENT WITH DIAGNOSIS OF MA . 21 NO PATHOGENS TO DATE FINAL REPORT PENDING COMPLETION OF INCUBATION PERIOD 22 NO GROWTH OF CAMPYLOBACTER AFTER 48 HOURS 23 NO GROWTH OF E COLI 0157:H7 24 NEGATIVE FOR THE ENTERIC PATHOGENS - SALMONELLA, SHIGELLA, AEROMONAS, PLESIOMONAS AND YERSINIA. VIBRIO AND E. COLI 0157 NOT ROUTINELY TESTED FOR IN A STOOL CULTURE. PLEASE SUBMIT SAMPLE WITH SPECIFIC REQUEST FOR DESIRED ORGANISM(S). 25 NO PATHOGENS TO DATE FINAL REPORT PENDING COMPLETION OF INCUBATION PERIOD 26 NO PATHOGENS TO DATE FINAL REPORT PENDING COMPLETION OF INCUBATION PERIOD 27 NEGATIVE BY IMMUNOASSAY NEGATIVE BY IMMUNOASSAY 28 Test not performed 29 Giardia and cryptosporidium antigen testing performed by immunoassay. If patient is immunocompromised or has traveled to or is from a developing country, a full ova and parasite exam with microscopic (OPMIC) is recommended. All samples will be held one month in case full ova and parasite testing is requested. Contact the Microbiology Department at [phone]. TEST LIMITATIONS: As with all diagnostic procedures, the results obtained should be used in conjunction with other clinical information available the physician. Negative results can occur in samples containing antigen below lower limits of detection of the assay. The use of colonic washes, aspirates or other diluted sample types has not been established and could affect the performance of the assay. Stool samples contaminated with an oily or particulate base (eg. Barium, mineral oil etc.) could interfere with the test and are not recommended. 30 NEGATIVE BY IMMUNOCHROMATOGRAPHIC ASSAY NEGATIVE BY IMMUNOCHROMATOGRAPHIC ASSAY 31 Negative <0.9 Equivocal 0.9 - 1.0 Positive >1.0 32 Negative <0.9 Equivocal 0.9 - 1.0 Positive >1.0 33 Negative <0.9 Equivocal 0.9 - 1.0 Positive >1.0 34 Negative <0.9 Equivocal 0.9 - 1.0 Positive >1.0 35 EBV Interpretation Chart . Interpretation VCA-IgM EA-IgG VCA-IgG NA-ABS . Susceptible - - - - Acute Infection + +or- +or- - Convalescent Phase +or- +or- + + Chronic or Reactivated - + + +or- Old Infection - - +or- + + Antibody Present - Antibody Absent 36 Negative <0.9 Equivocal 0.9 - 1.0 Positive >1.0 37 Negative <0.9 Equivocal 0.9 - 1.0 Positive >1.0 38 Recent studies consider the lower limit of 32.0 ng/mL to be a threshold for optimal health. Ashish BW. J Nutr. 2005 Oct;135(2):317-22. 39 Anion gap measurement may be of limited value in the presence of any alkalosis, especially in a combined acid base disorder. . 40 Note change in reference range as of 05/07/08. The change was based on recommendations from the [place] [employer] Association. 41 Please note change in reference range effective 08 . 42 Lymphopenia % 43 PLEASE FAX RESULTS TO 44 NORMAL RANGE MALES 1 - 20 NORMALLY MENSTRUATING FEMALES - Follicular Phase 3 - 9 - Mid-Cycle Peak 4 - 23 - Luteal Phase 1 - 6 POSTMENOPAUSAL FEMALES 16 - 114 . 45 EXPECTED RESULTS (pg/ml) MALES 20-75 POSTMENOPAUSAL FEMALES 20-88 NON FEMALES Mid-Follicular Phase 24-114 Periovulatory 62-534 Mid Luteal Phase 80-273 46 Anion gap measurement may be of limited value in the presence of any alkalosis, especially in a combined acid base disorder. . 47 Cell culture testing can be performed to confirm negative test results and to assist in detecting other viruses that can produce similar clinical symptoms. Please notify Microbiology Lab if further testing is desired. N^NEGATIVE BY IMMUNOASSAY^FLUA N^NEGATIVE BY IMMUNOASSAY^FLUB 48 NO GROWTH AFTER 5 DAYS 49 Index Value: Specimen reactivity relative to the negative cutoff. 50 Negative: Non-reactive by ICMA Positive: Repeatedly reactive by ICMA. Refer to Western Blot confirmatory test for final interpretation. . Physician should executive assistant to general counsel the patient about result significance. Patient information should be kept strictly confidential. 51 < or=0.90 Negative 0.91 - 1.09 Indeterminate > or=1.10 Positive 52 < or=0.90 Negative 0.91 - 1.09 Indeterminate > or=1.10 Positive 53 < or=0.90 Negative 0.91 - 1.09 Indeterminate > or=1.10 Positive 54 < or=0.90 Negative 0.91 - 1.09 Indeterminate > or=1.10 Positive 55 Acute Convalescent Chronic or Old Susceptible Infection Phase Reactivated Infection EBNA - - + + - + VCA-IgG - + - + + + - VCA-IgM - + + - - - EA-IgG - + - + - + - Thomas: + Antibody Present - Antibody Absent + - Antibody Present or Absent 56 Negative <0.9 Equivocal 0.9 - 1.0 Positive >1.0 57 Negative <0.9 Equivocal 0.9 - 1.0 Positive >1.0 58 RESULT RECHECKED AN CONFIRMED AT [facility] 59 FASTING 60 K+ INVALID. LAB ERROR. INTERPRET RESULT WITH CAUTION Procedures Date Code Description Status 08/20/2018 47192026 Colonoscopy Completed 08/03/2017 [id number] Mammogram Completed 07/28/2017 [id number] Mammogram Completed 12/06/2016 73704 Blood Pressure Monitoring Completed 07/17/2016 02362 Electrocardiogram Complete Completed 03/21/2016 [id number] Mammogram Completed 01/15/2015 [id number] Mammogram Completed 07/09/2013 [id number] Mammogram Completed 05/27/2012 83374 Pulse Oximetry Completed 06/30/2011 [id number] Mammogram Completed 01/22/2009 [id number] Colonoscopy Completed 09/09/2007 24312 Pulse Oximetry Completed Encounters Type Date Location Provider Dx Diagnosis Office Visit 06/27/2018 Main Office Felipe Rojas, Tiffanie Essential ( primary) 3:00p MAnneliseDAnnelise hypertension I71.2 Thoracic aortic aneurysm, without rupture E78.5 Hyperlipidemia, unspecified N30.11 Interstitial cystitis (chronic) with hematuria Z23 Encounter for immunization Z12.11 Encounter for screening for malignant neoplasm of colon R94.5 Abnormal results of liver function studies Office Visit 06/18/2017 4:00p Main Office Erin Yu, R07.0 Pain in throat PROJ MGR Office Visit 12/06/2016 1:15p [facility] Felipe Moreno Essential Lulu Rojas (primary) hypertension Office Visit 10/12/2016 1:15p Main Office Felipe Moreno Essential Lulu Rojas (primary) hypertension Office Visit 09/21/2016 6:10p Main Office Felipe Moreno Essential Lulu Rojas (primary) hypertension I71.2 Thoracic aortic aneurysm, without rupture Office Visit 07/17/2016 1:30p [facility] Felipe Newby R07.9 Chest painCrystal M.D. 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 Office Visit 12/02/2013 1:15p Main Office Trinidad Rodriguez, 719.41 Pain Joint Shoulder Afnp-C Region Office Visit 11/20/2013 2:50p Main Office Felipe Newby 272.4 Hyperlipidemia Other Lulu Rojas Unspec 268.9 Vitamin D Deficiency Unspec 401.1 Hypertension Benign V76.51 Screening For Malignant Neoplasms Colon 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 Office Visit 04/02/2013 3:00p Main Office Erin Yu, 401.9 Hypertension Unspec PROJ MGR 272.4 Hyperlipidemia Other Unspec 780.59 Sleep Disturbances Other Office Visit 08/26/2012 3:00p Main Office Felipe Newby 401.9 Hypertension Unspec Lulu Rojas Office Visit 08/12/2012 2:10p [facility] Office Felipe Newby 272.4 Hyperlipidemia Other Lulu Rojas Unspec 401.9 Hypertension Unspec 595.1 Cystitis Chronic Interstitial 625.5 Pelvic Congestion Syndrome V04.81 Need For Prophylactic Vaccination & Inoculation/Influenza 272.1 Hypertriglyceridemia Pure Office Visit 07/10/2012 1:45p Main Office Genie 782.1 Rash & Other [place]dorf, Nonspec Skin Afnp-C Eruption Office Visit 06/26/2012 4:00p Main Office Felipe Newby 401.1 Hypertension Lulu Rojas Benign Office Visit 05/27/2012 1:50p [place] Felipe Newby 786.50 Pain Chest Unspec Office Lulu Rojas 401.1 Hypertension Benign 272.4 Hyperlipidemia Other Unspec Office Visit 12/23/2011 12:30p Main Office Jacinto Newby 595.1 Cystitis Chronic Lulu Fisher Interstitial Office Visit 12/19/2011 3:40p Main Office Jodie Pryor 599.0 UTI Urinary Tract Lulu Doshi Infection Site Not Spec 595.1 Cystitis Chronic Interstitial Office Visit 06/23/2011 3:30p Main Office Erin Yu, 611.9 Breast Disorders PROJ MGR Unspec Office Visit 03/02/2011 2:10p [facility] Office Jodie Pryor 462 Pharyngitis Acute Lulu Doshi 268.9 Vitamin D Deficiency Unspec 787.91 Diarrhea Office Visit 04/06/2010 2:50p [facility] Felipe Newby 625.5 Pelvic Congestion Lulu Rojas Syndrome Office Visit 08/24/2009 4:15p [facility] Office Genie 709.8 Skin Disorders [place]dor[place], Other Spec Afnp-C Office Visit 10/21/2008 2:50p [facility] Office Felipe Newby 625.5 Pelvic Congestion Lulu Rojas Syndrome Office Visit 08/06/2008 8:00p Main Office Felipe Newby 625.5 Pelvic Congestion Lulu Rojas Syndrome Office Visit 07/22/2008 4:40p [facility] Office Felipe Newby V04.81 Need For Lulu Rojas Prophylactic Vaccination & Inoculation/Influe neldaa 625.5 Pelvic Congestion Syndrome Office Visit 12/26/2007 11:20a Main Office Jacinto Newby 465.9 URI Upper Lulu Fisher Respiratory Infections Acute Unspec Sites Office Visit 11/25/2007 10:10a [facility] Office Felipe Newby 620.2 Ovarian Cyst Other Lulu Rojas & Unspec 569.89 Intestine Disorders Other Office Visit 10/24/2007 10:20a [facility] Office Jacinto Newby 780.79 Malaise And Lulu Fisher Fatigue Other Office Visit 10/17/2007 11:00a [facility] Office Jacinto Newby 780.79 Malaise And Lulu Fisher Fatigue Other Office Visit 10/09/2007 2:15p [facility] Office Erin Yu 780.79 Malaise And PROJ MGR Fatigue Other Office Visit 09/26/2007 2:00p [facility] Office Erin Yu, 477.9 Rhinitis Allergic PROJ MGR Cause Unspec Office Visit 09/09/2007 1:00p [facility] Office Felipe Newby 079.99 Viral Infection Lulu Rojas Unspec Office Visit 07/31/2007 2:40p [facility] Office Felipe Newby 595.1 Cystitis Chronic Lulu Rojas Interstitial 272.0 Hypercholesterolemia Pure 780.59 Sleep Disturbances Other Plan of Treatment 04/17/2019 - Jodie Doshi M.D.R68.89 Other general symptoms and signsNew Labs:CBC W/Diff, Ordered: 04/17/19CCS-Comp Metabolic ([facility] [place], [place]), Ordered: Lyme Total/Igm/G WB Regardless, Ordered: 04/17/19Ua - Micro ([facility] [place] [place]), Ordered: Urine Culture & Sensitivity, Ordered: 04/17/19Comments:continue to stay well hydrated and take your ibuprofen. you can also take tylenol.AllComments:Medication Management Patient Understands medications she's taking? Yes No Are there Barriers to Adherence? Yes No Has the patient been asked about herbal supplements and therapies, and OTC meds? Yes No
[2019-04-21 21:34] LABS: ABS Eosinophils 0.1 10^3/ul (0-0.6); ABS Lymphocytes 1.9 10^3/ul (1.0-4.8); ABS Monocytes 0.4 10^3/ul (0-0.8); Eosinophil % 2.1 %; Hematocrit 41 % (35-47); Hemoglobin 14.2 g/dL (12.0-16.0); Lymphocyte % 29.3 %; Mean Corpuscular HGB Conc 34 g/dL (31-36); Mean Corpuscular Hemoglobin 31 pg (27-31); Mean Corpuscular Volume 91 fL (80-97); Mean Platelet Volume 8.3 fL (7.4-10.4); Platelet Count 178 10^3/uL (150-450); Red Blood Count 4.52 10^6 /uL (3.70-4.87); Red Cell Distribution Width 13 % (10-15); White Blood Count 6.4 10^3/uL (3.5-10.8)
--- NOTE | 2019-04-21 21:34 | ED ---
GI/ HPI - HPI Summary HPI Summary: Pt is a 58 y/o F presenting to the ED with a chief complaint of rectal bleeding. She states that she was sick last week with general bodyaches and feeling like she had the flu, and she got a blood test that came back nml. On the night of 04/19, she went to the bathroom around 0200, where she had a bowel movement, then diarrhea, then a good amount of just bright red blood came out. She had some more bleeding over the next couple of days, and wanted to get checked out. She also reports nausea and subjective fever. She denies myalgia, vomiting, chills, CP, SOB, dizziness, weakness, or hx of blood thinners. - History of Current Complaint Chief Complaint: EDGIBleed Time Seen by Provider: 04/21/19 20:32 Stated Complaint: RECTAL BLEEDING SENT FROM PRIMARY PER PT Hx Obtained From: Patient Onset/Duration: Started Days Ago, Still Present Timing: Intermittent, Lasting Days Severity: Mild Current Severity: None Pain Intensity: 0 Location of Pain: None Associated Signs and Symptoms: Positive: Nausea, Bright Red Blood w/Stool, Diarrhea, Fever. Negative: Dizziness, Weakness, Vomiting, Chest Pain Aggravating Factor(s): Voiding Alleviating Factor(s): Nothing - Allergy/Home Medications Allergies/Adverse Reactions: Allergies Allergy/AdvReac Type Severity Reaction Status Date / Time Penicillins Allergy Hives Verified 08/05/18 11:51 Home Medications: Home Medications Cyclobenzaprine HCl 5 mg PO TID PRN 04/21/19 [History Confirmed 04/21/19] PMH/Surg Hx/FS Hx/Imm Hx Previously Healthy: Yes Endocrine/Hematology History: Denies: Hx Anticoagulant Therapy, Hx Diabetes Cardiovascular History: Reports: Hx Hypercholesterolemia, Hx Hypertension - MEDICATED, Other Cardiovascular Problems/Disorders - VARICOSE VEIN SURGERY ONCE EA LEG Denies: Hx Pacemaker/ICD History: Reports: Other Problems/Disorders - Interstitial cystitis Denies: Hx Renal Disease Musculoskeletal History: Reports: Hx Orthopedic Injury - left ankle injury Denies: Hx Osteoporosis Sensory History: Reports: Hx Contacts or Glasses Denies: Hx Hearing Aid Opthamlomology History: Reports: Hx Contacts or Glasses Neurological History: Reports: Hx Migraine - RECENTLY 2 X MONTH Psychiatric History: Denies: Hx Panic Disorder - Cancer History Hx Chemotherapy: No Hx Radiation Therapy: No - Surgical History Surgery Procedure, Year, and Place: HYSTERECTOMY 2002,. MYOMECTOMY 2000,. OOPHORECTOMY 2007. Left ankle reconstruction ligaments Sep 2012 [facility]. [place] Varicose vein surgery (mulltiple times) [facility] Hx Anesthesia Reactions: No Infectious Disease History: No Infectious Disease History: Denies: Traveled Outside the [place] in Last 30 Days - Family History Known Family History: Negative: Hypertension - Social History Alcohol Use: Daily Alcohol Amount: glass of wine with dinner Substance Use Type: Reports: Prescribed Substance Use Comment - Amount & Last Used: oxycontin Hx Tobacco Use: No Smoking Status (MU): Never Smoked Tobacco Review of Systems Positive: Fever Negative: Chest Pain Negative: Shortness Of Breath Positive: Diarrhea, Nausea, Other - blood in stool. Negative: Vomiting Negative: Myalgia Neurological: Negative - dizziness Negative: Weakness All Other Systems Reviewed And Are Negative: Yes Physical Exam - Summary Physical Exam Summary: Constitutional: Well-developed, Well-nourished, Alert. (-) Distressed Skin: Warm, Dry HENT: Normocephalic; Atraumatic Eyes: Conjunctiva normal Neck: Musculoskeletal ROM normal neck. (-) JVD, (-) Stridor, (-) Tracheal deviation Cardio: Rhythm regular, rate normal, Heart sounds normal; Intact distal pulses; The pedal pulses are 2+ and symmetric. Radial pulses are 2+ and symmetric. (-) Murmur Pulmonary/Chest wall: Effort normal. (-) Respiratory distress, (-) Wheezes, (-) Rales Abd: Soft, (-) tenderness, (-) Distension, (-) Guarding, (-) Rebound Musculoskeletal: (-) Edema Lymph: (-) Cervical adenopathy Neuro: Alert, Oriented x3 Psych: Mood and affect Normal Triage Information Reviewed: Yes Vital Signs On Initial Exam: Initial Vitals Temp Pulse Resp BP Pulse Ox 98.1 F 93 18 143/94 95 04/21/19 18:31 04/21/19 18:31 04/21/19 18:31 04/21/19 18:31 04/21/19 18:31 Vital Signs Reviewed: Yes Diagnostics - Vital Signs Vital Signs Temp Pulse Resp BP Pulse Ox 04/21/19 20:31 85 96 04/21/19 20:30 88 155/97 98 08/05/19 18:31 98.1 F 93 18 143/94 95 - Laboratory Result Diagrams: 04/21/19 21:28 04/21/19 21:28 Lab Statement: Any lab studies that have been ordered have been reviewed, and results considered in the medical decision making process. - EKG 2109 Cardiac Rate: NL - 74bpm EKG Rhythm: Sinus Rhythm ST Segment: Normal Ectopy: None Summary of EKG Findings: EKG at 2109 shows NSR at 74bpm with normal TN, normal QRS, normal QTc, L axis deviation, normal ST, flattened T-waves in v4-v6, nonspecific EKG. GIGU Course/Dx - Course Course Of Treatment: Pt is a 58 y/o F presenting to the ED with a chief complaint of rectal bleeding. On the night of 04/19, she went to the bathroom around 0200, where she had a bowel movement, then diarrhea, then a good amount of just bright red blood came out. She also reports nausea and subjective fever. She denies myalgia, vomiting, chills, CP, SOB, dizziness, weakness, or hx of blood thinners. EKG at 2109 shows NSR at 74bpm with normal TN, normal QRS , normal QTc, L axis deviation, normal ST, flattened T-waves in v4-v6, nonspecific EKG. [place] [facility] [place] with dx of GI bleed. - Diagnoses Provider Diagnoses: GI bleed - Physician Notifications Discussed Care Of Patient With: Julian Pond - a Time Discussed With Above Provider: 22:00 Instructed by Provider To: Admit As Inpatient Discharge - Sign-Out/Discharge Documenting (check all that apply): Patient Departure - Discharge Plan Condition: Stable Disposition: ADMITTED TO [facility] - Billing Disposition and Condition Condition: STABLE Disposition: Admitted to [facility] - Attestation Statements Document Initiated by Scribe: Yes Documenting Scribe: Renate Gilbert Provider For Whom Mary is Documenting (Include Credential): Anitra Thomas MD. Scribe Attestation: Renate Thorpe scribed for Anitra Sellers MD. on 04/22/19 at 0506. Scribe Documentation Reviewed: Yes Provider Attestation: The documentation as recorded by the Renate avina accurately reflects the service I personally performed and the decisions made by me, Anitra Sellers MD. Status of Mary Document: Viewed
[2019-04-21] MEDS ORDERED: Pantoprazole IV* 40 MG IV ONE (21:44)
[2019-04-21 21:45] LABS: Activated Partial Thrombo Time 34.2 seconds (26.0-38.0); INR 1.03 (0.82-1.09)
[2019-04-21 21:50] LABS: Albumin 4.6 g/dL (3.2-5.2); Albumin/Globulin Ratio 1.8 (1-3); BUN/Creatinine Ratio 17.1 (8-20); Calcium 9.7 mg/dL (8.6-10.3); EGFR Non-African American 85.9 (>60); Globulin 2.5 g/dL (2-4); Potassium 4.4 mmol/L (3.5-5.0); Total Bilirubin 0.4 mg/dL (0.2-1.0); Total Protein 7.1 g/dL (6.4-8.9)
[2019-04-22] MEDS ORDERED: tiZANidine TAB* 2 MG PO PRN (00:09)
[2019-04-22] MEDS ORDERED: oxyCODONE TAB* 5 MG TAB PO PRN (00:09)
[2019-04-22] MEDS: NS 0.9% 1000 ML** 1,000 ML IV SCH ×2 (01:27→11:48)
[2019-04-22] MEDS ORDERED: Metoprolol Succinate XL TAB* 25 MG PO SCH (01:45)
--- NOTE | 2019-04-22 02:19 | HP ---
CC: Dr. Felipe Rojas; Dr. Mahesh Villavicencio * ADMISSION HISTORY AND PHYSICAL: DATE OF ADMISSION: 04/21/19 CHIEF COMPLAINT: Blood per rectum. HISTORY OF PRESENT ILLNESS: This is a 58-year-old female with past medical history of hypertension, aortic valve disease, followed by Dr. Aleman, high cholesterol, interstitial cystitis, chronic low back pain with L4-L5 disk disease, here due to blood per rectum. The patient stated that she was in her usual state of health up until about a week ago when she started having flu- like symptoms, generalized malaise, nausea, and felt feverish and warmth, so she did not eat much. As of Sunday, she woke up from her sleep due to severe abdominal pain which is more diffuse in nature, and she had a bowel movement which was mostly just blood, and this occurred on a daily basis the following Sunday and then even today, so she was concerned and presented to the ER. She stated that most amount of blood was present on Sunday, and it had improved a little bit but never resolved. She denies any shortness of breath. She did have some nausea but no vomiting, and she was concerned that she was taking a lot of ibuprofen, about 1000 mg, on a daily basis during her flu-like symptoms over the last week. She discussed this case with her primary care provider Dr. Rojas who suggested her to come to the ER for further evaluation. The patient stated that she did have a colonoscopy about a year ago by Dr. Villavicencio, and this was noted to be benign. She does have intermittent constipation due to her narcotic use for low back pain, but currently does not feel constipated. PAST MEDICAL HISTORY: As mentioned, 1. Hypertension. 2. Dyslipidemia. 3. Interstitial cystitis. 4. Aortic valve disease, possible thoracic aortic ectasia, for which she follows with Dr. Aleman once a year. 5. L4-L5 low back pain, on narcotics at home. PAST SURGICAL HISTORY: Include: 1. Uterine myomectomy in 2010 followed by hysterectomy in 2007, followed by oophorectomy in 2018 for endometriosis. 2. She has also had bilateral vein stripping for varicose veins. 3. Multiple colonoscopies, most recent one being last year. 4. Multiple cystoscopies for her interstitial cystitis. 5. Left ankle repair in 2012. FAMILY HISTORY: Father alive at age 85, has had coronary artery disease, AFib, prostate cancer, pacemaker insertion. Mom alive at age 86, has osteoporosis. She had suffered a stroke at age 80 and has not been doing so well. Two brothers, the younger brother has some heart disease, but otherwise the older brother is in good health. SOCIAL HISTORY: She denies any smoking, alcohol, or drug use. She does state that she consumes about a glass of wine on a daily basis with dinner, and she works at a [employer] center. HOME MEDICATIONS: The patient is currently on: 1. Vitamin D3 2000 units oral daily. 2. Vitamin B12 1000 mcg oral daily. 3. Flexeril 5 mg oral three times a day as needed for muscle spasms. 4. Ibuprofen 400 mg q.6 hours p.r.n. 5. Metoprolol 12.5 mg oral daily. 6. Myrbetriq 50 mg oral daily. 7. Multivitamin 1 tablet oral daily. 8. Oxycodone sustained release oral twice a day. 9. Roxicodone 5 mg tabs p.r.n. for breakthrough pain. 10. Rosuvastatin 10 mg at bedtime. 11. Tizanidine 4 mg p.o. at bedtime p.r.n. ALLERGIES: The patient documented to have allergies to PENICILLIN. PHYSICAL EXAMINATION GENERAL: The patient is awake, alert, oriented x3, did not appear to be in any acute respiratory distress. VITAL SIGNS: In the ER, BP was noted to be 160/101, heart rate 88, saturating 98% on room air, respiratory rate 18, temperature 98.1. HEAD AND NECK: Atraumatic, normocephalic. Bilateral pupils were reactive. Oral mucosa was moist. Neck supple. No jugular venous distention. LUNGS: Clear to auscultation bilaterally. No wheezing, rhonchi, or rales. HEART: S1, S2. Regular rate and rhythm. ABDOMEN: Soft and minimally tender diffusely with positive bowel sounds. EXTREMITIES: No cyanosis, clubbing, or edema. She was wearing compression stockings all the way to the thigh. LABORATORY DATA: CBC was unremarkable. Coagulation profile was unremarkable. Comprehensive metabolic panel was unremarkable. IMPRESSION: This is a 58-year-old female with low back pain, hypertension, dyslipidemia, interstitial cystitis, came in due to bright red blood per rectum with stable hemoglobin. ASSESSMENT: 1. Bright red blood per rectum, likely some kind of a diverticular bleed. We will consult GI. We will keep the patient n.p.o. and advance diet based on GI recommendation. 2. History of hypertension, restart home medication. 3. History of dyslipidemia. We will hold her statin until after her possible colonoscopy based on GI recommendation. 4. History of chronic low back pain, on multiple pain medications and muscle relaxers. We will restart the pain medications and muscle relaxers. 5. History of interstitial cystitis, on Myrbetriq. We will restart that. 6. DVT prophylaxis with sequential compression device. [id number]/[facility] #: [id number] VINAYAK
[2019-04-22 07:54] LABS: ABS Eosinophils 0.1 10^3/ul (0-0.6); ABS Lymphocytes 1.6 10^3/ul (1.0-4.8); ABS Monocytes 0.5 10^3/ul (0-0.8); ABS Neutrophils 3.5 10^3/ul (1.5-7.7); Eosinophil % 1.3 %; Hematocrit 38 % (35-47); Lymphocyte % 28.9 %; Mean Corpuscular HGB Conc 35 g/dL (31-36); Mean Corpuscular Hemoglobin 31 pg (27-31); Mean Corpuscular Volume 90 fL (80-97); Mean Platelet Volume 8.2 fL (7.4-10.4); Platelet Count 152 10^3/uL (150-450); Red Blood Count 4.17 10^6 /uL (3.70-4.87); Red Cell Distribution Width 13 % (10-15); White Blood Count 5.7 10^3/uL (3.5-10.8)
[2019-04-22 08:15] LABS: Calcium 9.2 mg/dL (8.6-10.3); EGFR African American 113.3 (>60); EGFR Non-African American 93.6 (>60); Potassium 3.8 mmol/L (3.5-5.0)
[2019-04-22] MEDS ORDERED: oxyCODONE SR TAB(*) 10 MG TAB.SR PO SCH (09:00)
[2019-04-22] MEDS ORDERED: Vitamin THERAPEUTIC TAB PO SCH (09:00)
[2019-04-22] MEDS ORDERED: Cyanocobalamin TAB* 500 MCG PO SCH (09:00)
[2019-04-22] MEDS ORDERED: Mirabegron (NF) 50 MG TAB PO SCH (09:00)
--- NOTE | 2019-04-22 09:31 | PN ---
Subjective Date of Service: 04/22/19 Interval History: Admitted overnight for bright red blood per rectum For one week has been feeling achy, unwell, took ibuprofen 1000mg X one week, prior to Blood per rectum This morning reports that when lying down she will feel heartburn, no nausea, no vomiting, no hematemesis. Reports no prior episodes of GI bleeding. Objective Active Medications: Cyanocobalamin (Vitamin B12 Tab*) 1,000 mcg PO DAILY [facility] Last Admin: 04/22/19 08:07 Dose: 1,000 mcg Sodium Chloride (Ns 0.9% 1000 Ml) 1,000 mls @ 100 mls/hr IV PER RATE [facility] Last Admin: 04/22/19 01:27 Dose: 100 mls/hr Metoprolol Succinate (Toprol Xl Tab*) 12.5 mg PO 2100 [facility] Last Admin: 04/22/19 01:39 Dose: 12.5 mg Mirabegron (Myrbetriq (Nf)) 50 mg PO DAILY [facility] Last Admin: 04/22/19 08:11 Dose: Not Given Multivitamins (Theragran Tab*) 1 tab PO DAILY [facility] Last Admin: 04/22/19 08:07 Dose: 1 tab Oxycodone HCl (Oxycontin(*)) 10 mg PO BID [facility] Last Admin: 04/22/19 08:07 Dose: 10 mg Oxycodone HCl (Roxycodone Tab*) 5 mg PO Q6H PRN PRN Reason: PAIN - BREAKTHROUGH Tizanidine HCl (Zanaflex Tab*) 4 mg PO BEDTIME PRN PRN Reason: BACK MUSCLE SPASM PAIN Last Admin: 04/22/19 01:38 Dose: 4 mg Vital Signs - 8 hr 04/22/19 04/22/19 04/22/19 03:44 03:46 03:50 Temperature 98.1 F 98.1 F Pulse Rate 65 66 68 Respiratory 18 20 20 Rate Blood Pressure 85/49 71/33 80/40 (mmHg) O2 Sat by Pulse 96 96 96 Oximetry 04/22/19 04/22/19 07:00 08:07 Temperature 97.4 F Pulse Rate 61 Respiratory 16 16 Rate Blood Pressure 124/68 (mmHg) O2 Sat by Pulse 98 Oximetry Oxygen Devices in Use Now: None Appearance: She is lying in bed, not in distress Eyes: PERRLA Respiratory: Symmetrical Chest Expansion and Respiratory Effort, Clear to Auscultation Cardiovascular: NL Sounds; No Murmurs; No JVD, RRR Abdominal: - - Bowel sounds normoactive, soft, nontender, no rigidity or guarding, non-distended. Extremities: No Edema Skin: No Rash or Ulcers Neurological: Alert and Oriented x 3 Result Diagrams: 04/22/19 07:44 04/22/19 07:44 Assess/Plan/Problems-Billing Assessment: - Patient Problems (1) GI bleed Current Visit: Yes Status: Acute Code(s): K92.2 - GASTROINTESTINAL HEMORRHAGE, UNSPECIFIED SNOMED Code(s): 85225387 Comment: Bright red blood per rectum Was taking 1000mg ibuprofen X one week. Differential include upper GI bleed- ulcer, gastritis vs. diverticular bleeding. not anemic at this point continue PPI GI consulted. (2) HTN (hypertension) Current Visit: Yes Status: Acute Code(s): I10 - ESSENTIAL (PRIMARY) HYPERTENSION SNOMED Code(s): 17672032 Comment: continue home dose metoprolol (3) HLD (hyperlipidemia) Current Visit: Yes Status: Acute Code(s): E78.5 - HYPERLIPIDEMIA, UNSPECIFIED SNOMED Code(s): 36626830 (4) Chronic pain Current Visit: Yes Status: Acute Code(s): G89.29 - OTHER CHRONIC PAIN SNOMED Code(s): 09434083 Comment: PRN home medication: oxycodone/tylenol (5) DVT prophylaxis Current Visit: Yes Status: Acute Code(s): Z29.9 - ENCOUNTER FOR PROPHYLACTIC MEASURES, UNSPECIFIED SNOMED Code(s): 318044581 Comment: SCD
[2019-04-22] MEDS ORDERED: Pantoprazole IV* 40 MG IV SCH (10:00)
[2019-04-22] MEDS ORDERED: Oxybutynin TAB* 5 MG PO ONE (11:47)
[2019-04-22] MEDS ORDERED: Midazolam* 1 MG/ML 10 ML VIAL (10 MG) ONE (14:23)
[2019-04-22] MEDS ORDERED: fentaNYL* 50 MCG/ML 2 ML VIAL (100 MCG VIAL) ONE (14:23)
--- NOTE | 2019-04-22 15:07 | CONS ---
GASTROENTEROLOGY CONSULT: DATE: 04/22/19 REFERRING PHYSICIANS: Julian Nuñez. REASON FOR CONSULT: Crampy abdominal pain and rectal bleeding beginning at 3 a.m. on 04/20/19. HISTORY: This 58-year-old woman with a history of hypertension, dyslipidemia, interstitial cystitis, chronic low back pain, pelvic pain, aortic valve disease (followed by Dr. Aleman) and status post hysterectomy and multiple colonoscopies including 08/20/18, had generally been in good health until about a week ago. She began feeling a sense of malaise and said this just was not resolving, so she had an appointment at her primary office, 04/17/19. Nothing specific was found and blood tests were done and were normal. While awaiting the blood test results, between 2 and 3 in the morning on 04/20/19, she felt intense crampy abdominal pain and then had an urgent stool followed by a sequence of progressively looser stools that became bloody. This continued throughout the rest of the day and also somewhat on 04/21/19. She called her primary office and was directed to the emergency room. No imaging was done. CBC showed a stable hemoglobin with hemoglobin 14.2, white count 6.4. Twelve hours later, the hemoglobin had dropped to 13.0 and white count was still normal at 5.7. The rest of her labs were normal. Again, there was no imaging done. She states she has never had anything like this before. Her colonoscopy on 01/02 had shown a redundant colon with pelvic adhesions, but no diverticula were commented on. There was a small rectal polyp that was hyperplastic. PAST MEDICAL HISTORY: 1. Aortic disorder - followed by Dr. Aleman. 2. Chronic low back pain. 3. Hypertension. 4. Dyslipidemia. 5. Interstitial cystitis - multiple cystoscopies. There was a component of pelvic pain syndrome and she had a consultation at a specialty clinic in [place] 11 years ago, which is scanned into the record. She is followed locally by Dr. Corona. 6. Status post uterine myomectomy in 2000. 7. Status post complete hysterectomy in 2002. 8. Left ankle repair in 2012. MEDICATIONS: She takes: 1. Metoprolol 12.5. 2. Rosuvastatin 10 at h.s. 3. Myrbetriq 50 mg. 4. Tizanidine 4 mg at h.s. 5. Oxycodone regularly and p.r.n. 6. Cyclobenzaprine 5 t.i.d. p.r.n. 7. Ibuprofen p.r.n. ALLERGIES: Her only allergy is to PENICILLINS. SOCIAL HISTORY: She works temporarily at a [employer]. 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 She has a glass of wine each night with dinner. REVIEW OF SYSTEMS: No history of syncope, OR, palpitations, TB, hemoptysis, hepatitis, jaundice, colon polyps, or other episodes of rectal bleeding. PHYSICAL EXAM: She is a slightly pale, middle-aged woman, in no distress, stating she is starting to become a little bit hungry. This morning's vitals show blood pressure 124/68, pulse 61, afebrile. Her skin is normal. She has no adenopathy. Her lungs are clear and heart sounds are regular. The abdomen is symmetric with some well-healed laparoscopic scars. Bowel sounds are active. There is some minimal suprapubic and left lower quadrant tenderness. Rectal: Deferred. Extremities are unremarkable with no edema. IMPRESSION: Nighttime abdominal pain in a crampy pattern with subsequent rectal bleeding suggests ischemic colitis though diverticula are still possible as well as benign causes. An unprepped sigmoidoscopy may confirm that diagnosis. She is improving and if it is not possible to reach such a segment, conservative care may be appropriate. The relatively recent colonoscopy did get good views. [id number]/[facility] #: [id number] VINAYAK
--- NOTE | 2019-04-22 17:23 | PRO ---
DATE: 04/22/19 - ROOM #420 REFERRING PHYSICIAN: Felipe Rojas * PROCEDURE: Flexible sigmoidoscopy INDICATION: This 58-year-old woman came to the emergency room reporting 48 hours of crampy abdominal pain that started with solid stools and turned to diarrhea with bleeding. Her hemoglobin fell from 14.2 to 13. She was afebrile with a normal white count. Her abdominal exam a few hours ago was benign. Informed consent was obtained. She was brought to the endoscopy suite and moderate sedation given. FINDINGS: She was positioned left side down and moderate sedation induced with 7 mg midazolam and 75 fentanyl. She was positioned left side down. Rectal is normal with formed brown stool palpated. Initial views show the rectum with a moderate amount of formed brown soft stool. The rectal mucosa appeared normal. No blood was seen. There was no mucus or exudate. The scope steered around the stool and made it to about 50 cm and there was clearly more brown stool without any mucus or bleeding. The mucosa had been seen about 60% and was normal throughout. There was no indication to biopsy. IMPRESSION: 1. Normal limited sigmoidoscopy to the upper sigmoid. 2. Fecal retention - FiberCon and MiraLAX and followup in about 10 days. [id number]/[facility] #: [id number] [facility]
[2019-04-22 18:17] VITALS: BP 135/77
--- NOTE | 2019-04-22 21:06 | DS ---
CC: Dr. Felipe Rojas; Dr. Mahesh Villavicencio * DISCHARGE SUMMARY: DATE OF ADMISSION: 04/21/19 DATE OF DISCHARGE: 04/22/19 PRIMARY CARE DOCTOR: Dr. Felipe Rojas. REGISTERED SAFETY ENGINEER: Dr. Mahesh Villavicencio REASON FOR ADMISSION: Bright red blood per rectum. DISCHARGE DIAGNOSES: 1. Bleeding, etiology unidentified. 2. History of back pain. 3. History of hypertension. 4. History of hyperlipidemia. 5. Interstitial cystitis. 6. Aortic valve disease, possibly thoracic aortic ectasia. 7. On chronic narcotics for low back pain. CONSULTANTS DURING THE HOSPITAL COURSE: Included Dr. Mahesh Villavicencio. HOSPITAL COURSE: This is a 58-year-old female with past medical history of hypertension, aortic valve disease, hyperlipidemia, interstitial cystitis, who presented to the emergency room because of bright red blood per rectum. She reports to me that she has been taking 1000 mg of ibuprofen for a week because of some flu-like symptoms, which was like achiness as well as feeling unwell. She reported to the primary care doctor that she started to have bright red blood per rectum and was suggested to come to the emergency room. In the emergency room, the patient was seen and evaluated, the patient's admitting hemoglobin was 14.2 and currently the hemoglobin in the morning was 13.0. The patient earlier this morning had a blood per rectum; however has not had any blood per rectum since. The patient had a Gastroenterology consultation with Dr. Mahesh Villavicencio as well as sigmoidoscopy today as well. Procedure flexible sigmoidoscopy was done by Dr. Mahesh Villavicencio today, which showed normal limited flex sigmoidoscopy in the upper and sigmoid as well as fecal retention, recommended FiberCon and MiraLAX and followup in about 10 days. I discussed the case with Dr. Mahesh Villavicencio after the colonoscopy, who felt comfortable discharging the patient today on MiraLAX as well as FiberCon. I discussed with the patient today about discharge, she was started after the procedure on a regular consistency diet, which she tolerated well. She does not have any nausea, no hematemesis, no further bright red blood per rectum. The patient with blood pressure of 135/77, heart rate of 65, respiratory rate of 16, temperature of 97.5, 100% on room air. For full detailed physical exam, please see my progress note from this morning. DISCHARGE CONDITION: Improved. DISCHARGE DISPOSITION: Home. FOLLOWUP INSTRUCTIONS: The patient is to follow up with Dr. Mahesh Villavicencio in 1 to 2 weeks. The patient is to call for an appointment. The patient is to follow up with Dr. Felipe Rojas. The patient is to call for an appointment. The patient is to not drive or operate heavy machinery x24 hours as she got anesthesia. The patient to return to the emergency room for chest pain, bloody vomiting, bloody stools, or if any new issues arise. DISCHARGE MEDICATIONS: The patient to be discharged on: 1. FiberCon 625 mg daily. 2. Pantoprazole 40 mg daily. 3 Polyethylene glycol/MiraLAX 17 g daily. To continue her home medications, which include: 1. Cyanocobalamin 1000 mcg daily. 2. Metoprolol 12.5 mg daily. 3. Myrbetriq 50 mg daily. 4. Multivitamin 1 tablet daily. 5. Oxycodone 10 mg daily. 6. Oxycodone sustained release 10 mg b.i.d. 7. Oxycodone short acting 5 mg every 6 hours as needed for pain. 8. Flexeril 5 mg t.i.d. as needed. 9. Tizanidine 2 mg at bedtime. 10. Rosuvastatin 10 mg daily. The patient is advised to not take anymore ibuprofen. [id number]/[facility] #: [id number] [facility]
[2019-04-23] MEDS ORDERED: Calcium Polycarbophil TAB* 625 MG PO SCH (09:00)
[2019-04-23] MEDS ORDERED: Polyethylene Glycol 3350* 17 GM PACKET PO SCH (09:00)
--- NOTE | 2019-05-01 11:26 | HP ---
HISTORY AND PHYSICAL: ADDENDUM: REVIEW OF SYSTEMS: A 14-point review of systems did not reveal any new information other than what is stated in the HPI. [id number]/[facility] #: [id number]
== END 2019-04-22 20:45 | disposition home or self-care (01) ==
LOC: ED 18:29 → MED 23:59
PROVIDERS: ADMIT Internal Medicine; ATTEND Internal Medicine
DX: K62.5 Hemorrhage of anus and rectum (principal); M54.9 Dorsalgia, unspecified; I10 Essential (primary) hypertension; E78.5 Hyperlipidemia, unspecified; N30.10 Interstitial cystitis (chronic) without hematuria; I35.8 Other nonrheumatic aortic valve disorders; Z79.899 Other long term (current) drug therapy; G89.29 Other chronic pain; Z88.0 Allergy status to penicillin; R00.1 Bradycardia, unspecified
CPT/HCPCS: 36415; 80048; 80053; 82272; 85025; 85610; 85730; 93005; 96361; 96374; 96376; 99156; 99284; A9270-GY; G0378; J2250; J3010